=== PATIENT | male | born 1945 | race Caucasian/White ===

== ENCOUNTER 2023-09-14 03:40 | Outpatient (CLI) | payer MEDICARE, BC, SELFPAY ==
--- OUTSIDE RECORDS SUMMARY | 2023-09-17 15:54 | XMS_ITS | Clinical Summary ---
Author Organization [employer] [facility] Address [place], [place] [address] Care Team Providers Care Supervisor Color Making Name Role Phone Ema Diallo Primary Care Provider [phone] Allergies Active Allergy Reactions Criticality Noted Date [...] (Restless legs). 90 Tablet 3 01/18/2023 Active pc-UY-L4-K-lycop -lut-herb#220 500 mcg-1,000 unit-20 mcg tab Take by mouth. 03/16/2023 Activ e CPAPIndications: RAFITA (obstructive sleep apnea) CPAP machine for home use at pressure 6cmw, CPAP mask- mask of choice, fit to comfort one per 3 months 1 Each 07/26/2023 Active donepeziL (ARICEPT) 5 mg tabletIndication [...] complete/Reg imen complete/Lev el of care change) pregabalin (LYRICA) 25 mg capsuleIndicatio ns:Restless legs [...] Encounters Date Type Department Care Team Description 09/17/2023 Telephone [facility] [address] [place] [address] Sy Feng MD FYI (pregabalin (LYRICA) 75 mg capsule) 09/14/2023 Orders Only [facility] Scanner 1 scan: (1-Ord) [facility]COM[facility], 09/14/2023 09/14/2023 Orders Only [facility] Scanner 1 scan: (1-Ord) INCOMING RECORDS-[facility], [facility], 09/14/2023 09/07/2023 10:30 AM CDT Nutrition/Dietic jeovanny [facility] [address] [place] [address] Medical Nutrition Therapy 09/06/2023 12:30 PM CDT Ancillary Procedure [facility] [address] [place] [address] 09/06/2023 Travel 09/03/2023 1:35 PM CDT Office Visit [facility] [address] [place] [address] Ema Diallo PA Medicare ANNUAL (subsequent) Visit (77 Year Old/Right heel pain- worse of the last 2 weeks- would like referral for podiatry ) 09/03/2023 Travel 08/31/2023 3:00 PM CDT Office Visit [facility] [address] [place] [address] Sy Feng MD Sleep Follow-up 08/31/2023 Travel 08/26/2023 Telephone [facility] [address] [place] [address] Ema Diallo PA Medication Management (Possible Drug interaction ) 08/20/2023 Refill [facility] [address] [place] [address] Gray Medina MD Refill Request (Donepezil 5mg) 08/18/2023 1:00 PM CDT Office Visit [facility] [address] [place] [address] Gray Medina MD Follow Up (Follow up after neuropsychology testing and discuss medications ) 08/18/2023 Travel 08/09/2023 11:00 AM CDT Office Visit [address] [address] Drea Reddy PsyD, LP Follow Up (Neuropsychology feedback) 08/09/2023 9:30 AM CDT Office Visit [facility] [address] [place] [address] Ema Diallo PA Derm Problem (f/u rash on lower right leg- seems like it is gone now - would like referral for Derm. 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 /Right heel pain- discomfort with walking) 08/09/2023 Travel 08/03/2023 Telephone [facility] [address] [place] [address] Sy Feng MD Questions (QUESTIONS REGARDING MEDICATIONS) 08/02/2023 12:30 PM CDT Office Visit [address] [address] Drea Reddy PsyD, LINDA Neuropsychological Assessment 08/02/2023 Travel 07/26/2023 10:00 AM CDT Office Visit [facility] [address] [place] [address] Sy Feng MD Sleep Consult 07/26/2023 Telephone [facility] [address] [place] [address] Clinic, No Pcp Or Medication Management (pregabalin (LYRICA) 25 mg capsule) 07/26/2023 Travel 07/12/2023 1:40 PM CDT Office Visit [facility] [address] [place] [address] Nakia Young PA Derm Problem (Rash on legs/While in [place], stepped into some bushes, but also had some fire ant bites as well and it's not getting better) 07/12/2023 Travel 07/12/2023 Telephone [facility] [address] [place] [address] Nakia Young PA Derm Problem (rash) 06/28/2023 Telephone [facility] [address] [place] [address] Miah Kaur MD from Last 3 Months Immunizations Name Administration Dates Next Due COVID-19 Vaccine Spikevax (M oderna 50mcg/0.5mL) 12YO+ 2634-2091 Formula PF 06/28/2023,01/18/2023 COVID-19 vaccine ([employer]-Bio NTech 30mcg/0.3mL) SENIA ARNOLD 08/08/2021,03/18/2021,07/22/2020,2020 Influenza Virus, [...] Care Team (Late st Contact Info) Description 09/20/2023 7:50 AM CDT Procedure Only [facility] [address] [place] [address] Ema Diallo PA [address] [place] [address] 10/06/2023 11:40 AM CDT Office Visit [facility] [place] [facility] [address] [place] [address] Gray Medina MD [address] [place] [address] 10/13/2023 2:15 PM CDT Office Visit [facility] [address] [place] [address] Aleksandr Espinosa DPM [address] [place] [address] 10/26/2023 1:20 PM CDT Office Visit [facility] [address] [place] [address] Brittanie Forde PA [address] [place], [place] [address] 11/18/2023 10:00 AM CDT Office Visit [facility] [address] [place] [address] Sy Feng MD [address] [place] [address] 12/14/2023 2:00 PM CDT Nutrition/Casting Finisher [facility] [[email or web address]] [address] [place] [address] Vimal Vincent, LN [address] [place] [address] Health Maintenance Due Date Last Done Comments Zoster (shingles) series for age 50+ (1 of 2) 12/30/2011 11/04/2011 Tetanus booster 11/03/2021 11/04/2011, 11/2004, 02/10/2005, Additional history exists COVID-19 vaccine series (2022- season) 2023 06/28/2023, 01/18/2023, 08/08/2021, Additional history [...] Procedure Name Priority Date/Time Associated Diagnosis Comments SCAN CORRESP-IMAGING 09/14/2023 12:00 AM CDT SCAN CORRESP-IMAGING 09/14/2023 12:00 AM CDT MR HEAD BRAIN WO Routine 09/06/2023 12:2 [...] stores from Last 3 Months Results * SCAN CORRESP-IMAGING (09/14/2023 12:00 AM CDT) Only the most recent of2 resultswithin the time period is included. Anatomical Region Laterality Modality Other Scanner OTHER * MR BRAIN WO CONTRAST (09/06/2023 12:24 PM CDT) Anatomical Region Laterality Modality BRAIN, HEAD Magnetic Resonan ce 09/06/2023 1:05 PM CDT Addenda Addendum by Ramone Pope MD on 09/15/2023 9:03 AM CDT INDICATION: Mild cognitive impairment. Technique Multiplanar multisequence MR imaging of the brain without intravenous contrast. COMPARISON: None. FINDINGS: Zhwl-qb-qprrpxvh diffuse cerebral volume loss. No mass effect [...] well aerated. Mastoid air cells are clear. IMPRESSION: 1. No acute intracranial abnormality. 2. Notf-pn-woxbffvl diffuse cerebral volume loss and minimal chronic microvascular ischemic changes. 3. 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 Contrast-enhanced imaging is recommended for further characterization. Dictated by Ramone Pope MD @ 09/06/2023 1:05:12 PM ----- ADDENDUM ----- The 9 mm lesion within the right internal auditory canal is not significantly changed compared to 10/27/2018. Dictated by Ramone Pope MD @ Sep 15 2023 ??8:57AM (Electronically Signed) Impressions 09/06/2023 1:05 PM CDT 1. No acute intracranial abnormality. 2. Ilex-we-irpgjfdq diffuse cerebral volume loss and minimal chronic microvascular ischemic changes. 3. 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 Contrast-enhanced imaging is recommended for further characterization. Dictated by Ramone Pope MD @ 09/06/2023 1:05:12 PM (Electronically Signed) Narrative 09/06/2023 1:05 PM CDT For Patients: ??As a result of the Century Cures Act, medical imaging exams and procedure reports are released immediately into your electronic medical record. ??You may view this report before your referring provider. ??If you have questions, please contact your health care provider. INDICATION: Mild cognitive impairment. Technique Multiplanar multisequence MR imaging of the brain without intravenous contrast. COMPARISON: None. FINDINGS: Vvme-qx-fwpragek diffuse cerebral volume loss. No mass effect [...] For Patients: As a result of the Cures Act, medical imagingexams and procedure reports are released immediately into your electronicmedical record. You may view this report before your referring provider.If you have questions, please contact your health care provider. INDICATION: Mild cognitive impairment. Technique Multiplanar multisequence MR imaging of the brain without intravenouscontrast. COMPARISON: None. FINDINGS: Pslc-xx-frdscgpv diffuse cerebral volume loss. No mass effect [...] IMPRESSION: 1. No acute intracranial abnormality. 2. Ijgm-jc-pwtwxsdb diffuse cerebral volume loss and minimal chronicmicrovascular [...] - 199 mg/dL 09/03/2023 11:42 PM CDT [facility] Comment: Cholesterol, Total Reference Ranges Desirable <200 mg/dL Borderline 200-239 mg/dL High >=240 mg/dL TRIGLYCERIDES 324(H) <150 mg/dL 09/03/2023 11:42 PM CDT [employer] HDL CHOLESTEROL 49 >40 mg/dL 05/31/202 4 11:42 PM CDT [facility] NON-HDL CHOLESTEROL 132 <145 mg/dl 09/03/2023 11:42 PM CDT [facility] CHOL/HDL RATIO 3.69 <4.50 09/03/2023 11:42 PM CDT [facility] LDL CHOLESTEROL 67 <=130 mg/dL 09/03/2023 11:42 PM CDT [facility] VLDL CHOLESTEROL 65(H) <=30 mg/dL 09/03/2023 11:42 PM CDT [facility] PROVIDER ORDERED STATUS RANDOM 09/03/2023 11:42 PM CDT [facility] Blood BLOOD SPECIMEN / Unknown Venipuncture / Unknown 09/03/2023 1:42 PM CDT 09/03/2023 1:44 PM CDT Ema CHI CHEMISTRY Performing Organization Address City/[facility] Co de Phone Number [facility] [address] [place] [address], [place] * ANTI HCV (09/03/2023 1:42 PM CDT) Pathologist [facility] HEPATITIS C ANTIBODY Non-Reacti ve Non-React shaji 09/03/2023 11:43 PM CDT [facility] Comment:Please note, per www .CDC.gov: If [...] Ema CHI SEND OUTS Performing Organization Address City/[facility]/ZIP Co de Phone Number [facility] [address] [place] [address], [place] * PSA TOTAL (DIAGNOSTIC) (09/03/2023 1:42 PM CDT) PSA TOTAL (DIAGNOSTIC) 1.26 <4.00 ng/mL 09/03/2023 11:42 PM CDT [facility] Blood BLOOD SPECIMEN / Unknown Venipuncture / Unknown 09/03/2023 1:42 PM CDT 09/03/2023 1:44 PM CDT Narrative [facility] - 09/03/2023 11:42 PM CDT The test [...] cannot be used interchangeably. Ema CHI CHEMISTRY [facility] [address] [place] [address], * URINE ALBUMIN TO CREATININE RATIO, RANDOM (08/09/2023 10:40 AM CDT) ALB RAND URINE <12.0 mg/L 08/09/2023 5:49 PM CDT [facility] CREATININE,URINE 0.73 g/L 08/09/19 5:49 PM CDT [facility] ALBUMIN TO CREATININE RATIO,RAND UR 08/09/2023 5:49 PM CDT [facility] Comment:Urine Albumin below measurement range, unable to calculate. Urine URINE SPECIMEN / Unknown Non-Blood / Unknown 08/09/2023 10:40 AM CDT 08/09/2023 10:40 AM CDT Narrative [facility] - 08/09/2023 5:49 PM CDT If Albumin to Creatinine Ratio is elevated, consider the following: ? Elevations seen with incipient nephropathy associated ?? with diabetes mellitus or hypertension. Stress, exercise,hematuria, ?? and urinary tract infection may also produce elevated results. If clinically indicated, confirm with ?24 Hour Albumin to Creatinine Ratio. ?? Ema CHI URINE Performing Organization Address City/[facility]/ZIP Co de Phone Number [facility] [address] [place] [address], [place] * HEMOGLOBIN A1C MONITORING (POCT) (08/09/2023 10:27 AM CDT) HEMOGLOBIN A1C MONITORING (POCT) 5.6 <=6.4 % 08/09/2023 10:39 AM CDT [facility] Blood BLOOD SPECIMEN / Unknown Venipuncture / Unknown 08/09/2023 10:27 AM CDT 08/09/2023 10:30 AM CDT Narrative [facility] - 08/09/2023 10:39 AM CDT [...] Untreated Anemias, Splenectomy ? Ema CHI CHEMISTRY Performing Organization Address City/[facility] Co de Phone Number [facility] [address] [place] [address], [place] [phone] * (ABNORMAL) BASIC METABOLIC PANEL [18609.0] (08/09/2023 10:27 AM CDT) Pathologist [facility] SODIUM 139 136 - 145 mmol/L 08/09/2023 6:22 PM CDT [facility] POTASSIUM 4.8 3.5 - 5.1 mmol/L 08/09/2023 6:22 PM CDT [facility] CHLORIDE 104 98 - 107 mmol/L 08/09/2023 6:22 PM CDT [facility] CO2,TOTAL 26 22 - 29 mmol/L 08/09/2023 6:22 PM CDT [facility] ANION GAP 9 5 - 18 08/09/2023 6:22 PM T [facility] GLUCOSE 87 70 - 99 mg/dL 08/09/2023 6:22 PM CDT [facility] CALCIUM 9.0 8.8 - 10.2 mg/dL 08/09/2023 6:22 PM T [facility] BUN 16 8 - 23 mg/dL 08/09/2023 6:22 PM T [facility] CREATININE 0.93 0.70 - 1.20 mg/dL 08/09/2023 6:22 PM T [facility] BUN/CREAT RATIO 17 10 - 20 6:22 PM CDT [facility] eGFR 84(L) >90 mL/min/1.7 3m2 08/09/2023 6:22 PM T [facility] Comment:As of 2021, eG FR is calculated by the CKD-EPI creatinine equation without race adjustment. ??eGFR can be influenced by muscle mass, exercise, and diet. ??The reported eGFR is an estimation only and is only applicable if the renal function is stable. Blood BLOOD SPECIMEN / Unknown Venipuncture / Unknown 08/09/2023 10:27 AM CDT 08/09/2023 10:30 AM CDT Ema CHI CHEMISTRY [facility] [address] [place] [address], * TSH WITH REFLEX (07/26/2023 11:00 AM CDT) TSH 1.48 0.27 - 4.20 uIU/mL 07/26/2023 7:36 PM CDT [facility] Blood BLOOD SPECIMEN / Unknown Venipuncture / Unknown 07/26/2023 11:00 AM CDT 07/26/2023 11:01 AM CDT Narrative [facility] - 07/26/2023 7:36 PM CDT In Adults, TSH values between 5.00 and 10.00 uIU/ml do not necessarily indicate the presence of Hypothyroidism. Correlation with clinical findings such as presence of goiter and/or Thyroperoxidase (TPO) Antibody may be helpful. For more information please refer to NASIM 2004; 291: 228-238. Sy Feng MD CHEMISTRY Performing Organization Address [facility] Co de Phone Number [facility] [address] [place] [address], * IRON PLUS IRON BINDING CAP (07/26/2023 11:00 AM CDT) IRON 80 61 - 157 ug/dL 07/26/2023 7:36 PM CDT [facility] UIBC (UNSATURATED) 232 112 - 347 ug/dL 07/26/2023 7:36 PM CDT [facility] IRON BINDING CAPACITY 312 250 - 400 ug/dL 07/26/2023 7:36 PM CDT [facility] IRON,% SATURATION 26 14 - 50 % 07/26/2023 7:36 PM CDT [facility] Blood BLOOD SPECIMEN / Unknown Venipuncture / Unknown 07/26/2023 11:00 AM CDT 07/26/2023 11:01 AM CDT Sy Feng MD CHEMISTRY Performing Organization Address [facility] Co de Phone Number [facility] [address] [place] [address], from Last 3 Months Care Teams Supervisor Color Making Relationship Specialty Start Date End Date Ema Diallo PA [address] [place] [address] PCP - General Physician Sheet Metal Apprentice 08/09/23
== END 2023-09-14 03:41 | disposition home or self-care (01) ==
LOC: AMB 09-17 15:52
PROVIDERS: PCP Student in an Organized Health Care Education/Training Program; Visit Provider Student in an Organized Health Care Education/Training Program
DX: S19.9XXA Unspecified injury of neck, initial encounter (principal); W06.XXXA Fall from bed, initial encounter; Y92.091 Bathroom in other non-institutional residence as the place of occurrence of the external cause
CPT/HCPCS: A0425; A0429

== ENCOUNTER 2023-09-14 04:02 | Emergency (ER) | payer MEDICARE, BC, SELFPAY ==
--- NOTE | 2023-09-14 04:03 | CRLHL7_ITS ---
For Patients: As a result of the Century Cures Act, medical imaging exams and procedure reports are released immediately into your electronic medical record. You may view this report before your referring provider. If you have questions, please contact your health care provider. INDICATION: FALL FROM BED, HEAD LACERATION TECHNIQUE: CT cervical spine without contrast. COMPARISON: None. FINDINGS: Vertebrae: Alignment is normal. There are no fractures or suspicious bony lesions. Discs and facet joints: There are diffuse degenerative changes in the disc spaces and facet joints. Extraspinal findings: Paraspinous soft tissues are unremarkable. IMPRESSION: 1. No sign of acute cervical spine fracture. 2. Multilevel degenerative spondylosis. Please note that all CT scans at this facility use dose modulation, iterative reconstruction, and/or weight-based dosing when appropriate to reduce radiation dose to as low as reasonably achievable. Dictated by Jose Gutierrez MD @ 09/14/2023 5:05:14 AM (Electronically Signed)
--- NOTE | 2023-09-14 04:03 | CRLHL7_ITS ---
For Patients: As a result of the Century Cures Act, medical imaging exams and procedure reports are released immediately into your electronic medical record. You may view this report before your referring provider. If you have questions, please contact your health care provider. INDICATION: FALL FROM BED, HEAD LACERATION TECHNIQUE: Head CT without contrast. COMPARISON: None. FINDINGS: CSF spaces: Mild global parenchymal volume loss. Brain parenchyma and extra-axial spaces: There are mild nonspecific low attenuation white matter changes consistent with chronic microvascular disease. No sign of mass effect, hemorrhage, or midline shift. Skull base and calvarium: The visualized paranasal sinuses and mastoid air cells demonstrate no acute or significant findings. The visualized orbits are grossly unremarkable. No skull fractures. IMPRESSION: 1. No evidence of skull fracture or intracranial hemorrhage. 2. Mild global parenchymal volume loss and chronic microvascular ischemic changes. Please note that all CT scans at this facility use dose modulation, iterative reconstruction, and/or weight-based dosing when appropriate to reduce radiation dose to as low as reasonably achievable. Dictated by Jose Gutierrez MD @ 09/14/2023 5:01:14 AM (Electronically Signed)
[2023-09-14 04:06] VITALS: BP 130/86; PULSE 60; RESP 16; TEMP 36.3; O2SAT 98; BMI 23.6
--- NOTE | 2023-09-14 04:33 | ED_ITS ---
HPI - Fall General Date Seen: 09/14/23 Chief Complaint: Fall/Minor Trauma Stated Complaint: Fall, Head lac Time Seen by Provider: 09/14/23 04:03 Source: patient and family Mode of arrival: EMS Limitations: no limitations History of Present Illness HPI Narrative: patient is a 77-year-old male here with his brought in by EMS after a fall. Patient has a history of cognitive decline recently started on medication for it. Today he rolled all of bed and hit his head on a steel side table. His heard the fall and woke up instantly and states he did not lose consciousness. Since the fall he has been able to ambulate in she says he has been otherwise acting normal. He does state he has a mild headache. Does not any blood thinners. Denies vision changes, weakness, numbness, hearing changes. No other concerns at this time. Denies any neck pain. Related Data Home Medications ?Medication ?Instructions ?Recorded ?Confirmed donepezil 5 mg tablet 5 mg PO DAILY 09/14/23 09/14/23 fluorouracil 5 % topical cream applic topical 09/14/23 ketorolac 0.4 % eye drops drp ophthalmic (eye) 09/14/23 pramipexole 0.5 mg tablet 0.5 mg PO DAILY 09/14/23 09/14/23 pregabalin 25 mg capsule PO 09/14/23 pregabalin 75 mg capsule 75 mg PO DAILY 09/14/23 09/14/23 Review of Systems Status of ROS: Reports: 10 or more systems reviewed and unremarkable except as noted in History and below PFSH PFSH Social History Smoking Status: Never smoker Do you use any of these nicotine containing products: None Second hand tobacco smoke exposure: No How often do you have a drink containing alcohol: never How often do you have six or more drinks on one occasion: Never AUDIT-C Alcohol total score: 0 Non-prescribed substance use: denies use service: No Exam Narrative: Exam Narrative: Const: Well-nourished, Well-developed, in no distress Eyes: PERRL, no conjunctival injection, and symmetrical lids HENT: Atraumatic external nose and ears. Moist mucous membranes. Multiple lacerations seen the back the patient's head measuring 1 cm, 1.5 cm, 1.5 cm respectively. Neck: Symmetric, trachea midline, No thyromegaly. CVS: RRR, No murmurs or gallops. Peripheral pulses 2+ and equal in all extremities RESP: Unlabored respiratory effort. Clear to auscultation bilaterally. GI: Nontender/Nondistended, No rebound or guarding. MSK:Extremities w/o deformity, Normal Active ROM Skin: Warm, Dry. No rashes or lesions. Neuro: Normal Muscle tone, No focal neurological deficits. Psych: Awake, Alert, & Oriented x3. Appropriate mood and affect. Const: Vital Signs, click to edit/add: Vital Signs - 24 hr 09/14/23 04:06 Temperature 97.3 F L Pulse Rate [Pulse Oximeter] 60 Respiratory Rate 16 Blood Pressure [Ri ght Upper Arm] 130/86 Pulse Oximetry 98 Oxygen Delivery Me thod Room Air Course Vital Signs Vital signs: Initial Vital Signs Temperature 97.3 F L 09/14/23 04:06 Temperature Source Temporal Artery Scan 09/14/23 04:06 Pulse Rate 60 09/14/23 04:06 Pulse Rhythm Regular 09/14/23 04:06 Respiratory Rate 16 09/14/23 04:06 Blood Pressure 130/86 09/14/23 04:06 Blood Pressure Mean 100 09/14/23 04:06 Blood Pressure Position Supine 09/14/23 04:06 Pulse Oximetry 98 09/14/23 04:06 Oxygen Delivery Method Room Air 09/14/23 04:06 Vital Signs Temperature 97.3 F L 09/14/23 04:06 Pulse Rate 60 09/14/23 04:06 Respiratory Rate 16 09/14/23 04:06 Blood Pressure 130/86 09/14/23 04:06 Pulse Oximetry 98 09/14/23 04:06 Oxygen Delivery Method Room Air 09/14/23 04:06 Temperature 97.3 F L 09/14/23 04:06 Pulse Rate 60 09/14/23 04:06 Respiratory Rate 16 09/14/23 04:06 Blood Pressure 130/86 09/14/23 04:06 Pulse Oximetry 98 09/14/23 04:06 Oxygen Delivery Method Room Air 09/14/23 04:06 MDM - Fall MDM Narrative Medical decision making narrative: Patient is a 77-year-old male presenting to emergency department after a fall. He is neurovascularly intact at this time. He rolled out of bed and has been able to ambulate since then. No other concerns noted. Will do a CT scan of his head and cervical spine. Imaging was done showing no concerning abnormalities as reviewed by myself and the radiologist. I used jaclyn to close up the wounds on his scalp. But the longer ones were relatively superficial facial with 1 not requiring any sutures in the other requiring to. The 1 cm laceration required 3 jaclyn. He tolerated the procedure well. His last tetanus was 1 year ago per the . Will be discharged. Imaging Data CT scan head: Attestation: I have reviewed the pertinent imaging results. Radiologist's impression: 1. No evidence of skull fracture or intracranial hemorrhage. 2. Mild global parenchymal volume loss and chronic microvascular ischemic changes. Please note that all CT scans at this facility use dose modulation, iterative reconstruction, and/or weight-based dosing when appropriate to reduce radiation dose to as low as reasonably achievable. Dictated by Jose Gutierrez MD @ 09/14/2023 5:01:[address] scan cervical spine: Attestation: I have reviewed the pertinent imaging results. Radiologist's impression: 1. No sign of acute cervical spine fracture. 2. Multilevel degenerative spondylosis. Please note that all CT scans at this facility use dose modulation, iterative reconstruction, and/or weight-based dosing when appropriate to reduce radiation dose to as low as reasonably achievable. Dictated by Jose Gutierrez MD @ 09/14/2023 5:05:14 AM Discharge Plan Discharge Clinical Impression: Closed head injury, Laceration of scalp Patient Disposition: Home, Self-Care Condition: Improved Instructions: Staple Care (ED) Additional Instructions: Follow-up with your primary care provider or urgent care in the next 7 days to have the 5 jaclyn removed. For next 6 months, once sutures are removed, whenever you go outside put a dab of sunscreen over the laceration site to improve scar appearance. Topical antibiotics are not necessary at this time. Patient can shower but do not submerge the laceration until sutures are removed Prescriptions: No Action donepezil 5 mg tablet 5 mg PO DAILY fluorouracil 5 % cream topical pramipexole 0.5 mg tablet 0.5 mg PO DAILY ketorolac 0.4 % drops ophthalmic (eye) pregabalin 25 mg capsule PO pregabalin 75 mg capsule 75 mg PO DAILY Stand Alone Forms: [facility] Info Instructions Procedures Laceration Scalp: Name of person performing procedure: Jonathan Richardson Site: scalp Size (cm): 1.5 Description: linear and clean Depth: simple, single layer Local Anesthetic: lidocaine 1% Amount of anesthesia used (mL): 3 Pre-repair: wound explored, irrigated extensively and deep structures intact Skin layer closed with: other (5 jaclyn)
--- OUTSIDE RECORDS SUMMARY | 2023-09-14 04:51 | XMS_ITS | Clinical Summary ---
Author Organization [facility] Address [place], [place] [address] Care Team Providers Care Dining Services Director Name Role Phone Ema Diallo Primary Care Provider [phone] Allergies Active Allergy Reactions Criticality Noted Date Comments Ciprofloxacin Angioedema High 10/27/2008 Inhaled Anesthetics (Halogen Based) Hypotension High 10/20/2017 Medications Medication Sig Dispensed Refills Start Date End Date Status CPAP As directed 1 Device one time. 09/29/2022 Active ginkgo biloba 40 mg tab Take 40 mg by mouth once daily. Active Magnesium 200 mg tab Take 400 mg by mouth. Active pramipexole (MIRAPEX) 0.5 mg tabletIndication s:Restless legs syndrome Take 1 Tablet (0.5 mg) by mouth at bedtime if needed (Restless legs). 90 Tablet 3 01/18/2023 Active kj-JD-Z4-K-lycop -lut-herb#220 500 mcg-1,000 unit-20 mcg tab Take by mouth. 03/16/2023 Activ e CPAPIndications: RAFITA (obstructive sleep apnea) CPAP machine for home use at pressure 6cmw, CPAP mask- mask of choice, fit to comfort one per 3 months 1 Each 11 07/26/2023 Active donepeziL (ARICEPT) 5 mg tabletIndication s:Amnestic MCI (mild cognitive impairment with memory loss) Take 1 Tablet (5 mg) by mouth at bedtime for 30 days, THEN 2 Tablets (10 mg) at bedtime. 210 Tablet 08/25/2023 12/23/2023 Active pregabalin (LYRICA) 75 mg capsuleIndicatio ns:Restless legs syndrome (RLS) Take 1 Capsule (75 mg) by mouth at bedtime. 30 Capsule 4 08/31/2023 Active gabapentin (NEURONTIN) 100 mg capsule Take 100 mg by mouth two times daily. 09/29/2022 08/31/2023 Discontinued (*Med complete/Reg imen complete/Lev el of care change) triamcinolone 0.5% (ARISTOCORT) 0.5 % creamIndications :Rash Apply topically to affected area(s) three times daily. 30 g 1 07/12/2023 08/18/2023 Discontinued (*Patient states no longer taking) pregabalin (LYRICA) 25 mg capsuleIndicatio ns:Restless legs syndrome Take 1 pill by mouth in the afternoon -- if no results after 1 week can increase to 2 pills and max is 3 pills 60 Capsule 3 07/26/2023 08/31/2023 Discontinued (*Med complete/Reg imen complete/Lev el of care change) donepeziL (ARICEPT) 5 mg tabletIndication s:Amnestic MCI (mild cognitive impairment with memory loss) Take 1 Tablet (5 mg) by mouth at bedtime. 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 Prostate cancer 01/18/2023 Onychomycosis 01/18/2023 Encounters Date Type Department Care Team Description 09/07/2023 10:30 AM CDT Nutrition/Dietic jeovanny [facility] [address] [place] [address] Medical Nutrition Therapy 09/06/2023 12:30 PM CDT Ancillary Procedure [facility] [address] [place] [address] 09/06/2023 Travel 09/03/2023 1:35 PM CDT Office Visit [facility] [address] [place] [address] Ema Diallo PA Medicare ANNUAL (subsequent) Visit (77 Year Old/Right heel pain- worse of the last 2 weeks- would like referral for podiatry ) 09/03/2023 Travel 08/31/2023 3:00 PM CDT Office Visit [facility] [address] [place] [address] Sy Feng MD Sleep Follow-up 08/31/2023 Travel 08/26/2023 Telephone [facility] [address] [place] [address] Ema Diallo PA Medication Management (Possible Drug interaction ) 08/20/2023 Refill [facility] [address] [place] [address] Gray Medina MD Refill Request (Donepezil 5mg) 08/18/2023 1:00 PM CDT Office Visit [facility] [address] [place] [address] Gray Medina MD Follow Up (Follow up after neuropsychology testing and discuss medications ) 08/18/2023 Travel 08/09/2023 11:00 AM CDT Office Visit [address] [phone] Drea Reddy PsyD, LINDA Follow Up (Neuropsychology feedback) 08/09/2023 9:30 AM CDT Office Visit [facility] [address] [place] [address] Ema Diallo PA Derm Problem (f/u rash on lower right leg- seems like it is gone now - would like referral for Derm. 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 /Right heel pain- discomfort with walking) 08/09/2023 Travel 08/03/2023 Telephone [facility] [address] [place] [address] Sy Feng MD Questions (QUESTIONS REGARDING MEDICATIONS) 08/02/2023 12:30 PM CDT Office Visit [facility] [address] [place] [phone] Drea Reddy PsyD, LP Neuropsychological Assessment 08/02/2023 Travel 07/26/2023 10:00 AM CDT Office Visit [facility] [address] [place] [address] Sy Feng MD Sleep Consult 07/26/2023 Telephone [facility] [address] [place] [address] Clinic, No Pcp Or Medication Management (pregabalin (LYRICA) 25 mg capsule) 07/26/2023 Travel 07/12/2023 1:40 PM CDT Office Visit [facility] [address] [place] [address] Nakia Young PA Derm Problem (Rash on legs/While in [place], stepped into some bushes, but also had some fire ant bites as well and it's not getting better) 07/12/2023 Travel 07/12/2023 Telephone [facility] [address] [place] [address] Nakia Young PA Derm Problem (rash) 06/28/2023 Telephone [facility] [address] [place] [address] Miah Kaur MD from Last 3 Months Immunizations Name Administration Dates Next Due COVID-19 Vaccine Spikevax (M oderna 50mcg/0.5mL) 12YO+ [id number] Formula PF 06/28/2023,01/18/2023 COVID-19 vaccine (Sync.ME-Bio NTech 30mcg/0.3mL) SENIA ARNOLD 08/08/2021,03/18/2021,07/22/2020,2020 Influenza Virus, Unspecified 09/27/2018 Influenza, IIV3 (Age >=3 years) 01/21/2007,03/24,02/10/2005 Influenza, Inactivated AIIV4 (Age 65+ Years) Preserv Free 01/18/2023 Influenza, split (incl. patrice fied surface antigen) 01/21/2007 Pneumococcal Poly,23-Valent (Pneumovax) 09/25/2009 Pneumococcal conj 13-Valent (Prevnar 13) 10/17/2014 Td (Age >=7 Years) 02/10/2005,03/19/1995 Td, Preservative Free (age > = 7 Years) 02/10/2005 Tdap 11/04/2011 Zoster (Zostavax-ZVL, live) 11/04/2011 Zoster, Unspecified Formulation 10/09/2021(Defer red: Patient Refused) Social History Tobacco Use Types Packs/Day Years Used Date Smoking Tobacco: Never Smokeless Tobacco: Never Tobacco Cessation:Counseling Given: Yes Alcohol Use Standard Drinks/Week Comments Never 0 (1 standard drink = 0.6 oz pur e alcohol) PHQ-2 Answer Date Recorded PHQ-2 TOTAL SCORE 0 09/03/2023 Social Connections Answer Date Recorded Frequency of Communication with Friends and Fami ly 0 01/18/2023 Financial Resource Strain Answer Date R ecorded Difficulty of Paying Living Expenses 2 01/18/2023 Difficulty of Paying Living Expenses 1 01/18/2023 Food Insecurity Answer Date Recorded Worried About Running Out of Food in the Last Ye ar 1 01/18/2023 Transportation Needs Answer Date Record ed Lack of Transportation (Medical) 1 01/18/2023 Housing Stability Answer Date Recorded Unable to Pay for Housing in the Last Year 1 01/18/2023 Sex and Gender Information Value Date Recorded Sex Assigned at Not on file Gender Identity Not on file Sexual Orientation Not on file Obstetrics History Last Filed Vital Signs Vital Sign Reading Time Taken Comments Blood Pressure 111/69 09/03/2023 1:51 PM CDT Pulse 76 09/03/2023 1:51 PM CDT Temperature 36.6 ??C (97.9 ??F) 07/12/2023 1:18 PM CD T Respiratory Rate - - Oxygen Saturation 97% 09/03/2023 1:51 PM CDT Inhaled Oxygen Concentration - - Weight 77.8 kg (171 lb 8 oz) 09/03/2023 1:51 PM CDT Height 171.4 cm (5' 7.48) 09/03/2023 1:51 PM CD T Body Mass Index 26.48 09/03/2023 1:51 PM CDT Plan of Treatment Upcoming Encounters Date Type Department Care Team (Late st Contact Info) Description 10/06/2023 11:40 AM CDT Office Visit [facility] [address] [place] [address] Gray Medina MD [address] [place] [address] 10/13/2023 2:15 PM CDT Office Visit [facility] [address] [place] [address] Aleksandr Espinosa DPM [address] [place] [address] 10/26/2023 1:20 PM CDT Office Visit [facility] [address] [place] [address] Brittanie Forde PA [address] [place] [address] 11/18/2023 10:00 AM CDT Office Visit [facility] [address] [place] [address] Sy Feng MD [address] [place] [address] 12/14/2023 2:00 PM CDT Nutrition/Dietici an [facility] [address] [place] [address] [place] [address] Health Maintenance Due Date Last Done Comments Zoster (shingles) series for age 50+ (1 of 2) 12/30/2011 11/04/2011 Tetanus booster 11/03/2021 11/04/2011, 11/2004, 02/10/2005, Additional history exists COVID-19 vaccine series ( season) 2023 06/28/2023, 01/18/2023, 08/08/2021, Additional history exists Influenza for age 65+ 12/05/2023 01/18/2023 , 09/27/2018, 01/21/2007, Additional history exists BMI (ht and wt on same day) for age 18+ 09/02/2024 09/03/2023, 07/26/2023 Medicare Wellness for age 65+ 09/03/2024 09/03/2023 Depression screening for age 12+ 09/06/2024 09/07/2023, 09/03/2023, 08/09/2023 Tdap Completed 11/04/2011 Pneumococcal series for age 65+ Completed 5, 09/25/2009 Hepatitis C screening for ag e 18-79 Completed 09/03/2023 Procedures Procedure Name Priority Date/Time Associated Diagnosis Comments MR HEAD BRAIN WO Routine 09/06/2023 12:2 4 PM CDT Amnestic MCI (mild cognitive impairment with memory loss) PSA TOTAL (DIAGNOSTIC) Routine 09/03/2023 1:42 PM CDT Prostate cancer (HC) ANTI HCV Routine 09/03/2023 1:42 PM CDT Encounter for hepatitis C screening test for low risk patient LIPID PANEL W REFLEX MEASURED LDL Routine 09/03/2023 1:42 PM CDT Lipid screening URINE ALBUMIN TO CREATININE RATIO, RANDOM Routine 08/09/2023 10:40 AM CDT Type 2 diabetes mellitus without complication, without long-term current use of insulin (HC) BASIC METABOLIC PANEL Routine 08/09/2023 10:27 AM CDT Type 2 diabetes mellitus without complication, without long-term current use of insulin (HC) HEMOGLOBIN A1C Routine 08/09/2023 10:27 AM CDT Type 2 diabetes mellitus without complication, without long-term current use of insulin (HC) TSH WITH REFLEX Routine 07/26/2023 11:00 AM CDT Fatigue, unspecified type IRON PLUS IRON BINDING CAP Routine 07/26/2023 11:00 AM CDT Low iron stores from Last 3 Months Results * MR BRAIN WO CONTRAST (09/06/2023 12:24 PM CDT) Anatomical Region Laterality Modality BRAIN, HEAD Magnetic Resonan ce 09/06/2023 1:05 PM CDT Impressions 09/06/2023 1:05 PM CDT 1. No acute intracranial abnormality. 2. Bneb-hm-brigdtss diffuse cerebral volume loss and minimal chronic microvascular ischemic changes. 3. 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 Contrast-enhanced imaging is recommended for further characterization. Dictated by Ramone Pope MD @ 09/06/2023 1:05:12 PM (Electronically Signed) Narrative 09/06/2023 1:05 PM CDT For Patients: ??As a result of the Cures Act, medical imaging exams and procedure reports are released immediately into your electronic medical record. ??You may view this report before your referring provider. ??If you have questions, please contact your health care provider. INDICATION: Mild cognitive impairment. Technique Multiplanar multisequence MR imaging of the brain without intravenous contrast. COMPARISON: None. FINDINGS: Ifdm-xe-oiwcijlh diffuse cerebral volume loss. No mass effect or midline shift. Minimal FLAIR hyperintensities in the supratentorial white matter, typical for chronic microvascular ischemic changes. No intracranial hemorrhage or pathologic extra-axial fluid collection. No diffusion restriction to suggest acute infarction. T2 hypointense signal abnormality within the right internal auditory canal measuring 9 mm (series 10, image 37). The major arterial flow voids of the skull base are preserved. The globes are symmetric. Thinning of the ocular lenses. The paranasal sinuses are well aerated. Mastoid air cells are clear. Procedure Note Ramone Pope MD - 09/06/2023 For Patients: As a result of the 21st Century Cures Act, medical imagingexams and procedure reports are released immediately into your electronicmedical record. You may view this report before your referring provider.If you have questions, please contact your health care provider. INDICATION: Mild cognitive impairment. Technique Multiplanar multisequence MR imaging of the brain without intravenouscontrast. COMPARISON: None. FINDINGS: Kick-va-ztyfypmm diffuse cerebral volume loss. No mass effect or midlineshift. Minimal FLAIR hyperintensities in the supratentorial white matter,typical for chronic microvascular ischemic changes. No intracranial hemorrhage or pathologic extra-axial fluid collection. Nodiffusion restriction to suggest acute infarction. T2 hypointense signalabnormality within the right internal auditory canal measuring 9 mm(series 10, image 37). The major arterial flow voids of the skull base are preserved. The globesare symmetric. Thinning of the ocular lenses. The paranasal sinuses arewell aerated. Mastoid air cells are clear. IMPRESSION: 1. No acute intracranial abnormality. 2. Iwuh-ww-ottxdxfu diffuse cerebral volume loss and minimal chronicmicrovascular ischemic changes. 3. Signal abnormality within the right internal auditory canal, concerningfor vestibular schwannoma. Contrast-enhanced imaging is recommended forfurther characterization. Dictated by Ramone Pope MD @ 09/06/2023 1:05:12 PM (Electronically Signed) Gray Medina MD MR * (ABNORMAL) LIPID PANEL W REFLEX MEASURED LDL (09/03/2023 1:42 PM CDT) CHOLESTEROL,TOTAL 181 100 - 199 mg/dL 09/03/2023 11:42 PM CDT [facility] Comment: Cholesterol, Total Reference Ranges Desirable <200 mg/dL Borderline 200-239 mg/dL High >=240 mg/dL TRIGLYCERIDES 324(H) <150 mg/dL 09/03/2023 11:42 PM CDT [facility] HDL CHOLESTEROL 49 >40 mg/dL 11:42 PM CDT [facility] NON-HDL CHOLESTEROL 132 <145 mg/dl 09/03/2023 11:42 PM CDT [facility] CHOL/HDL RATIO 3.69 <4.50 09/03/2023 11:42 PM CDT [facility] LDL CHOLESTEROL 67 <=130 mg/dL 09/03/2023 11:42 PM CDT [facility] VLDL CHOLESTEROL 65(H) <=30 mg/dL 09/03/2023 11:42 PM CDT [facility] PROVIDER ORDERED STATUS RANDOM 09/03/2023 11:42 PM CDT [facility] Blood BLOOD SPECIMEN / Unknown Venipuncture / Unknown 09/03/2023 1:42 PM CDT 09/03/2023 1:44 PM CDT Ema CHI CHEMISTRY Performing Organization Address [facility] Co de Phone Number [facility] [address] [place] [address], [place] * ANTI HCV (09/03/2023 1:42 PM CDT) HEPATITIS C ANTIBODY Non-Reacti ve Non-React shaji 09/03/2023 11:43 PM CDT [facility] Comment:Please note, per www .CDC.gov: If a patient is known to be at high risk of HCV infection, or is symptomatic, and the physician's suspicion of HCV infection is high, HCV RNA testing is often employed and is of diagnostic value, even after an initial negative anti-HCV test result. Blood BLOOD SPECIMEN / Unknown Venipuncture / Unknown 09/03/2023 1:42 PM CDT 09/03/2023 1:44 PM CDT Ema CHI SEND OUTS Performing Organization Address [facility]/ZIP Co de Phone Number [facility] [address] [place] [address], [place] * PSA TOTAL (DIAGNOSTIC) (09/03/2023 1:42 PM CDT) PSA TOTAL (DIAGNOSTIC) 1.26 <4.00 ng/mL 09/03/2023 11:42 PM CDT [facility] Blood BLOOD SPECIMEN / Unknown Venipuncture / Unknown 09/03/2023 1:42 PM CDT 09/03/2023 1:44 PM CDT Narrative [facility] - 09/03/2023 11:42 PM CDT The test method changed on 09/29/2022. If this test has been used for serial monitoring, rebaselining is recommended. Rebaselining consists of 2 measurements, collected 3-6 weeks apart. The [employer] Ele[employer]ys total PSA assay is an electrochemiluminescence immunoassay ECLIA performed on the [employer] Amador e immunoassay analyzers. Values obtained with different assay methods may be different and cannot be used interchangeably. Ema CHI CHEMISTRY [facility] [address] [place] [address], * URINE ALBUMIN TO CREATININE RATIO, RANDOM (08/09/2023 10:40 AM CDT) ALB RAND URINE <12.0 mg/L 08/09/2023 5:49 PM CDT [facility] CREATININE,URINE 0.73 g/L 08/09/19 5:49 PM CDT [facility] ALBUMIN TO CREATININE RATIO,RAND UR 08/09/2023 5:49 PM CDT [facility] Comment:Urine Albumin below measurement range, unable to calculate. Urine URINE SPECIMEN / Unknown Non-Blood / Unknown 08/09/2023 10:40 AM CDT 08/09/2023 10:40 AM CDT Narrative [facility] - 08/09/2023 5:49 PM CDT If Albumin to Creatinine Ratio is elevated, consider the following: ? Elevations seen with incipient nephropathy associated ?? with diabetes mellitus or hypertension. Stress, exercise,hematuria, ?? and urinary tract infection may also produce elevated results. If clinically indicated, confirm with ?24 Hour Albumin to Creatinine Ratio. ?? Ema CHI URINE [facility] [address] [place] [address], [place] * HEMOGLOBIN A1C MONITORING (POCT) (08/09/2023 10:27 AM CDT) [facility] HEMOGLOBIN A1C MONITORING (POCT) 5.6 <=6.4 % 08/09/2023 10:39 AM CDT [facility] Blood BLOOD SPECIMEN / Unknown Venipuncture / Unknown 08/09/2023 10:27 AM CDT 08/09/2023 10:30 AM CDT Narrative [facility] - 08/09/2023 10:39 AM CDT ? (<=6.9%) ? Indicates good control ? (7.0% to 7.9%) ? Indicates fair control ? (>=8.0%) ? Indicates poor control ?? NOTE: ??These thresholds are guidelines and ?individual targets may vary. Falsely low levels may be seen with: Recent Transfusion, Recent Significant Blood Loss, Hemolytic Diseases, or Falsely elevated levels may be seen with: Untreated Anemias, Splenectomy ? Ema CHI CHEMISTRY [facility] [address] [place] [address], [place] [phone] * (ABNORMAL) BASIC METABOLIC PANEL [77463.0] (08/09/2023 10:27 AM CDT) [facility] SODIUM 139 136 - 145 mmol/L 08/09/2023 6:22 PM CDT [facility] POTASSIUM 4.8 3.5 - 5.1 mmol/L 08/09/2023 6:22 PM CDT [facility] CHLORIDE 104 98 - 107 mmol/L 08/09/2023 6:22 PM CDT [facility] CO2,TOTAL 26 22 - 29 mmol/L 08/09/2023 6:22 PM CDT [facility] ANION GAP 9 5 - 18 08/09/2023 6:22 PM CDT [facility] GLUCOSE 87 70 - 99 mg/dL 08/09/2023 6:22 PM CDT [facility] CALCIUM 9.0 8.8 - 10.2 mg/dL 08/09/2023 6:22 PM CDT [facility] BUN 16 8 - 23 mg/dL 08/09/2023 6:22 PM CDT [facility] CREATININE 0.93 0.70 - 1.20 mg/dL 08/09/2023 6:22 PM CDT [facility] BUN/CREAT RATIO 17 10 - 20 6:22 PM T [facility] eGFR 84(L) >90 mL/min/1.7 3m2 08/09/2023 6:22 PM T [facility] Comment:As of 2021, eG FR is calculated by the CKD-EPI creatinine equation without race adjustment. ??eGFR can be influenced by muscle mass, exercise, and diet. ??The reported eGFR is an estimation only and is only applicable if the renal function is stable. Blood BLOOD SPECIMEN / Unknown Venipuncture / Unknown 08/09/2023 10:27 AM CDT 08/09/2023 10:30 AM CDT Ema CHI CHEMISTRY [facility] [address] [place] [address] * TSH WITH REFLEX (07/26/2023 11:00 AM CDT) TSH 1.48 0.27 - 4.20 uIU/mL 07/26/2023 7:36 PM CDT [facility] Blood BLOOD SPECIMEN / Unknown Venipuncture / Unknown 07/26/2023 11:00 AM CDT 07/26/2023 11:01 AM CDT Narrative [facility] - 07/26/2023 7:36 PM CDT In Adults, TSH values between 5.00 and 10.00 uIU/ml do not necessarily indicate the presence of Hypothyroidism. Correlation with clinical findings such as presence of goiter and/or Thyroperoxidase (TPO) Antibody may be helpful. For more information please refer to NASIM 2004; 291: 228-238. Sy Feng MD CHEMISTRY Performing Organization Address [facility]/ZIP Co de Phone Number [facility] [address] [place] [address], * IRON PLUS IRON BINDING CAP (07/26/2023 11:00 AM CDT) IRON 80 61 - 157 ug/dL 07/26/2023 7:36 PM CDT [facility] UIBC (UNSATURATED) 232 112 - 347 ug/dL 07/26/2023 7:36 PM CDT [facility] IRON BINDING CAPACITY 312 250 - 400 ug/dL 07/26/2023 7:36 PM CDT [facility] IRON,% SATURATION 26 14 - 50 % 07/26/2023 7:36 PM CDT [facility] Blood BLOOD SPECIMEN / Unknown Venipuncture / Unknown 07/26/2023 11:00 AM CDT 07/26/2023 11:01 AM CDT Sy Feng MD CHEMISTRY Performing Organization Address [facility] Co de Phone Number [facility] [address] [address], from Last 3 Months Care Teams Dining Services Director Relationship Specialty Start Date End Date Ema Diallo PA [address] [place] [address] PCP - General Physician [employer]ing Machinist 08/09/23
[2023-09-14 05:44] VITALS: BP 125/71; PULSE 98; RESP 74
== END 2023-09-14 05:45 | disposition home or self-care (01) ==
PROVIDERS: Emergency Provider Student in an Organized Health Care Education/Training Program; PCP Student in an Organized Health Care Education/Training Program
DX: S01.01XA Laceration without foreign body of scalp, initial encounter (principal); W06.XXXA Fall from bed, initial encounter
CPT/HCPCS: 12002; 70450; 72125; 99283

== ENCOUNTER 2023-12-05 18:37 | Outpatient (CLI) | payer MEDICARE, BC, SELFPAY ==
--- OUTSIDE RECORDS SUMMARY | 2023-12-07 00:03 | XMS_ITS | Clinical Summary ---
Author Organization [facility] Address [place], [place] [address] Care Team Providers Care A Class Lineman Name Role Phone Ema Diallo Primary Care Provider [phone] Allergies Active Allergy Reactions Criticality Noted Date Comments Ciprofloxacin Angioedema High 10/27/2008 Inhaled Anesthetics (Halogen Based) Hypotension High 10/20/2017 Medications Medication Sig Dispensed Refills Start Date End Date Status pramipexole (MIRAPEX) 0.5 mg tabletIndications :Restless legs syndrome Take 1 Tablet (0.5 mg) by mouth at bedtime if needed (Restless legs). 90 Tablet 3 01/18/2023 Active CPAPIndications:O SA (obstructive sleep apnea) CPAP machine for home use at pressure 6cmw, CPAP mask- mask of choice, fit to comfort one per 3 months 1 Each 11 07/26/2023 Active pregabalin (Lyrica) 100 mg capsuleIndication s:Restless legs syndrome (RLS) Take 1 Capsule (100 mg) by mouth two times daily. Take once in mid morning and again at night 60 Capsule 2 10/12/2023 Active CPAP As directed 1 Device one time. 09/29/2022 11/18/2023 Discontinued (*Med complete/Reg imen complete/Lev el of care change) ginkgo biloba 40 mg tab Take 40 mg by mouth once daily. 11/18/2023 Discontinued (*Med complete/Reg imen complete/Lev el of care change) Magnesium 200 mg tab Take 400 mg by mouth. 11/18/2023 Discontinued (*Med complete/Reg imen complete/Lev el of care change) kz-ZW-F3-K-lycop- lut-herb#220 500 mcg-1,000 unit-20 mcg tab Take by mouth. 03/16/2023 11/18/2023 Discontinu ed (*Med complete/Reg imen complete/Lev el of care change) donepeziL (ARICEPT) 5 mg tabletIndications :Amnestic MCI (mild cognitive impairment with memory loss) Take 1 Tablet (5 mg) by mouth at bedtime for 30 days, THEN 2 Tablets (10 mg) at bedtime. 210 Tablet 08/25/2023 11/18/2023 Discontinued (*Med complete/Reg imen complete/Lev el of care change) pregabalin (LYRICA) 75 mg capsuleIndication s:Restless legs syndrome (RLS) Take 1 Capsule (75 mg) by mouth at bedtime. 30 Capsule 4 08/31/2023 11/18/2023 Discontinued (*Med complete/Reg imen complete/Lev el of care change) Active Problems Problem Noted Date Diagnosed Date Skin cancer 10/26/2023 Overview: 10/26/23:RIGHT UPPER CUTANEOUS LIP:Basal cell carcinoma, nodular and infiltrative:Needs Mohs 10/26/23:LEFT SUPERIOR MEDIAL CHEEK:Basal cell carcinoma, nodular: Needs Mohs 10/26/23:LEFT INFERIOR CHIN:Basal cell carcinoma, nodular and infiltrative: Needs Mohs BCC on back and face- [facility] RAFITA (obstructive sleep apnea) 01/18/2023 Restless legs syndrome 01/18/2023 Right acoustic neuroma 01/18/2023 Type 2 diabetes mellitus wit hout complication, without long-term current use of insulin 01/18/2023 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 Prostate cancer 01/18/2023 Onychomycosis 01/18/2023 Encounters Date Type Department Care Team Description 12/05/2023 Nurse Triage [facility] [[email or web address] [address] [place] [address] Ema Diallo PA Fall; Confusion 11/18/2023 10:00 AM CDT Office Visit [facility] [[email or web address]] [address] [place] [address] [address] Sy Feng MD Sleep Follow-up 11/18/2023 Travel 11/01/2023 Telephone [facility] [address] [place] [address] Brittanie Forde PA Abnormal Lab Results 10/26/2023 1:20 PM CDT Office Visit [facility] [address] [place] [address] Brittanie Forde PA Derm Problem (skin check) 10/26/2023 Travel 10/18/2023 7:00 AM CDT Office Visit [facility] [[email or web address]] [address] [place] [address] Ema Diallo PA Foot Problem (PF seems to be improved - got new shoes, wearing splints ); Urinary Problem (Incontinence - has improved some as well - goes to the bathroom hourly, making it to the restroom most times though ); Sinus Problem (Eye and nose discharge - still happening some - blows his nose a lot ) 10/18/2023 Travel 10/13/2023 2:15 PM CDT Office Visit [facility] [[email or web address]] [address] [place] [address] Aleksandr Espinosa DPM Consult (Right foot pain) 10/13/2023 Travel 10/13/2023 Telephone [facility] [[email or web address]] [address] [place] [address] Sy Feng MD Error-please disregard (TELEPHONE ENCOUNTER ALREADY OPEN) 10/12/2023 Telephone [facility] [[email or web address]] [address] [place] [address] Sy Feng MD Refill Request (pregabalin (LYRICA)) 10/12/2023 Telephone [facility] [[email or web address]] [address] [place] [address] Ema Diallo PA 10/06/2023 11:40 AM CDT Office Visit [facility] [place] [facility] [address] [place] [address] Gray Medina MD Follow Up (Follow up MRI 09/06/23, neuropsych testing 08/02/23. Patient also had head CT and cervical CT 09/14/23 after fall from bed ) 10/06/2023 Travel 10/05/2023 Telephone [facility] [[email or web address]] [address] [facility] [place] [address] Sy Feng MD Medication Management (pregabalin (LYRICA) 75 mg capsule) 09/21/2023 Telephone [facility] [place] [facility] [address] [place] [address] Gray Medina MD Results 09/20/2023 7:50 AM CDT Procedure Only [facility] [[email or web address]] [address] [place] [address] Ema Diallo PA Suture Removal (jaclyn from head ) 09/20/2023 Travel 09/17/2023 Telephone [facility] [[email or web address]] [address] [place] [address] Sy Feng MD FYI (pregabalin (LYRICA) 75 mg capsule) 09/14/2023 Orders Only [facility] Scanner 1 scan: (1-Ord) INCOMING RECORDS-CT, [facility], 09/14/2023 09/14/2023 Orders Only [facility] Scanner 1 scan: (1-Ord) INCOMING RECORDS-IN, [facility], 09/14/2023 09/07/2023 10:30 AM CDT Nutrition/Dieticia n [facility] [[email or web address]] [address] [place] [address] Medical Nutrition Therapy 09/06/2023 12:30 PM CDT Ancillary Procedure [facility] [[email or web address]] [address] [place] [address] 09/06/2023 Travel from Last 3 Months Immunizations Name Administration Dates Next Due COVID-19 Vaccine Spikevax (M oderna 50mcg/0.5mL) 12YO+ 9841-4790 Formula PF 06/28/2023,01/18/2023 COVID-19 vaccine (SERPsBio NTech 30mcg/0.3mL) SENIA ARNOLD 08/08/2021,03/18/2021,07/22/2020,2020 Influenza Virus, [...] Sign Reading Time Taken Comments Blood Pressure 105/69 11/18/2023 9:48 AM CDT Pulse 77 11/18/2023 9:48 AM CDT Temperature 36.6 ??C (97.9 ??F) 07/12/2023 1:18 PM CD T Respiratory Rate - - Oxygen Saturation 97% 11/18/2023 9:48 AM CDT Inhaled Oxygen Concentration - - Weight 79.5 kg (175 lb 3.2 oz) 11/18/2023 9:48 A M CDT Height 171.4 cm (5' 7.48) 11/18/2023 9:48 AM CD T Body Mass Index 27.05 11/18/2023 9:48 AM CDT Plan of Treatment Upcoming Encounters Date Type Department Care Team (Late st Contact Info) Description 12/14/2023 2:00 PM CDT Nutrition/Global Cto [facility] [address] [place] [address] [place] [address] 12/15/2023 10:45 AM CDT Office Visit [facility] [[email or web address]] [address] [place] [address] Ema Diallo PA [address] [place] [address] 01/17/2024 8:45 AM CDT Procedure Only [facility] [address] [address] Filemon Keith MD [address] [place] [address] 01/25/2024 1:00 PM CDT Office Visit [facility] [address] [place] [address] Brittanie Forde PA [address] [place], [place] [address] 01/31/2024 9:00 AM CDT Procedure Only [facility] [address] [address] Filemon Keith MD [address] [place] [address] 03/07/2024 9:30 AM MARKETING LIAISON Office Visit [facility] [[email or web address]] [address] [place] [address] Sy Feng MD [address] [place] [address] 03/07/2024 10:40 AM MARKETING LIAISON Office Visit [facility] [place] [facility] [address] [place] [address] Gray Medina MD [address] [place] [address] Health Maintenance Due Date Last Done Comments Zoster (shingles) series for age 50+ (2 of 3) 12/30/2011 11/04/2011 Tetanus booster 11/03/2021 11/04/2011, 11/2004, 02/10/2005, Additional history exists Influenza for age 65+ 12/05/2023 01/18/2023 , 09/27/2018, 01/21/2007, Additional history exists Medicare Wellness for age 65+ 09/03/2024 09/03/2023 Depression screening for age 12+ 09/06/2024 09/07/2023, 09/03/2023, 08/09/2023 BMI (ht and wt on same day) for age 18+ 11/17/2024 11/18/2023, 09/03/2023, 07/26/2023 Tdap Completed 11/04/2011 Pneumococcal series for age 65+ Completed 5, 09/25/2009 COVID-19 vaccine series Completed 06/28/19 24, 01/18/2023, 08/08/2021, Additional history exists Hepatitis C screening for ag e 18-79 Completed 09/03/2023 Procedures Procedure Name Priority Date/Time Associated Diagnosis Comments PATH TISSUE EXAM Routine 10/26/2023 1:20 PM CDT Neoplasm of uncertain behavior of skin UA W/ SEDIMENT EXAM REFLEXED PER CRITERIA Routine 10/18/2023 7:22 AM CDT Urge incontinence of urine SCAN CORRESP-IMAGING 09/14/2023 12:00 AM CDT SCAN CORRESP-IMAGING 09/14/2023 12:00 AM CDT MR HEAD BRAIN WO Routine 09/06/2023 12:2 4 PM CDT Amnestic MCI (mild cognitive impairment with memory loss) ANTI HCV Routine 09/03/2023 1:42 PM CDT Encounter for hepatitis C screening test for low risk patient from Last 3 Months or Most Recently Relevant to Health Maintenance Results * PATH TISSUE EXAM (10/26/2023 1:20 PM CDT) Case Report Pathology Report ?Case: [id number] ? Authorizing Provider: ??Brittanie Forde PA ? Collected: ? 10/26/2023 1320 ? Ordering Location: ? [facility] ??Received: ?10/26/2023 1539 ? Clinic ? Pathologist: ? Lina Miller MD ? Specimens: ?? A) - Lip, right upper cutaneous lip ? B) - Left Cheek, left superior medial cheek ? C) - Chin, left inferior chin ? 10/29/2023 1:16 PM CDT [facility] Final Diagnosis A) SKIN, RIGHT UPPER CUTANEOUS LIP, BIOPSY: 1. Basal cell carcinoma, nodular and infiltrative types: ?? a. Perineural invasion: Absent ?? b. Margins: Positive B) SKIN, LEFT SUPERIOR MEDIAL CHEEK, BIOPSY: 1. Basal cell carcinoma, nodular type: ?? a. Perineural invasion: Absent ?? b. Margins: Positive C) SKIN, LEFT INFERIOR CHIN, BIOPSY: 1. Basal cell carcinoma, nodular and infiltrative types: ?? a. Perineural invasion: Absent ?? b. Margins: Positive 10/29/2023 1:16 PM CDT [facility] Clinical Information A, B and C) rule out BCC. 10/29/2023 1:16 PM CDT [facility] Gross Description A) Received in formalin, labeled with the patient's name and right upper cutaneous lip, is a 0.5 x 0.4 cm skin biopsy. The skin surface is entirely involved with a flat glez-white lesion. The specimen is inked orange, bisected and entirely submitted in one cassette. B) Received in formalin, labeled with the patient's name and left superior medial cheek, are 2 skin biopsies measuring 0.5 x 0.3 cm and 0.4 x 0.3 cm. The skin surfaces are entirely involved with flat glez-white lesions. The specimens are differentially inked blue and green and entirely submitted in 1 cassette. C) Received in formalin, labeled with the patient's name and left inferior chin, is a 0.4 x 0.4 cm skin biopsy. The skin surface is entirely involved with a flat glez lesion. The specimen is inked red, bisected and entirely submitted in one cassette. EVM 10/27/2023 ?? 10/29/2023 1:16 PM CDT [facility] Microscopic Description The final diagnosis is based on microscopic examination of appropriate sections of all specimens. A) There is a nodular and infiltrative neoplasm composed of hyperchromatic epithelial cells with little cytoplasm and little mitotic activity, associated with some cleft formation adjacent to the stroma. The presence of ??orange ink is confirmed on tissue sections. B) There is a nodular neoplasm composed of hyperchromatic epithelial cells with little cytoplasm and little mitotic activity, associated with some cleft formation adjacent to the stroma. The presence of ??blue and green ink is confirmed on tissue sections. C) There is a nodular and infiltrative neoplasm composed of hyperchromatic epithelial cells with little cytoplasm and little mitotic activity, associated with some cleft formation adjacent to the stroma. The presence of ??red ink is confirmed on tissue sections. 10/29/2023 1:16 PM CDT [facility] Additional Information [facility] at [facility], Central Laboratory - [address], [place] [address] 10/29/2023 1:16 PM CDT [facility] LABORAT[facility]-C ENTRPA LABORATORY Other SPECIMEN FROM LIP / Unknown Non-Blood / Unknown 10/26/2023 1:20 PM CDT 10/26/2023 3:39 PM CDT Comment:container B) two ski n fragments Specimen (specimen) (Left Cheek) Non-Blood / Unknown 10/26/2023 1:20 PM CDT 10/26/2023 3:39 PM CDT Comment:container B) two ski n fragments Specimen (specimen) (Chin) 10/26/2023 1:20 PM CDT 10/26/2023 3:39 PM CDT Comment:container B) two ski n fragments Brittanie [facility]-CENTRAL LABORATORY [address] [place] [id number], [place] * (ABNORMAL) UA W/ SEDIMENT EXAM REFLEXED PER CRITERIA (10/18/2023 7:22 AM CDT) COLOR Yellow Yellow Color 10/18/2023 7:38 AM CDT [facility] [email or web address]] CLARITY Clear Clear Clarity 10/18/2023 7:38 AM CDT [facility] [[email or web address]] SPECIFIC GRAVITY,URINE >=1.030(A) 1.010, 1.015, 1.020, 1.025 10/18/2023 7:38 AM CDT [facility] [[email or web address]] PH,URINE 5.5 6.0, 7.0, 8.0, 5.5, 6.5, 7.5, 8.5 10/18/2023 7:38 AM CDT [facility] [[email or web address]] UROBILINOGEN, QUALITATIVE Normal Normal EU/dl 10/18/2023 7:38 AM CDT [facility] [email or web address]] PROTEIN, URINE Trace(A) Negative mg/dL 10/18/2023 7:38 AM CDT [facility] [email or web address]] GLUCOSE, URINE Negative Negative mg/dL 10/18/2023 7:38 AM CDT [facility] [[email or web address]] KETONES,URINE Negative Negative mg/dL 10/18/2023 7:38 AM CDT [facility] [[email or web address]] BILIRUBIN,URI NE Negative Negative 10/18/2023 7:38 AM CDT [facility] [[email or web address]] OCCULT BLOOD,URINE Negative Negative 10/18/2023 7:38 AM CDT [facility] [[email or web address]] NITRITE Negative Negative 10/18/2023 7:38 AM CDT [facility] [[email or web address]] LEUKOCYTE ESTERASE Negative Negative 10/18/2023 7:38 AM CDT [facility] [email or web address]] Urine URINE SPECIMEN / Unknown Non-Blood / Unknown 10/18/2023 7:22 AM CDT 10/18/2023 7:23 AM CDT Ema [facility] URINE [facility] [[email or web address]] [address] [facility] [place] [address], * SCAN CORRESP-IMAGING (09/14/2023 12:00 AM CDT) [...] brain without intravenous contrast. COMPARISON: None. FINDINGS: Mvgz-rv-rqvrutmp diffuse cerebral volume loss. No mass effect [...] IMPRESSION: 1. No acute intracranial abnormality. 2. Axkk-yx-qcplvgnk diffuse cerebral volume loss and minimal chronic [...] CDT 1. No acute intracranial abnormality. 2. Aujf-qn-sewsqkty diffuse cerebral volume loss and minimal chronic [...] brain without intravenous contrast. COMPARISON: None. FINDINGS: Zdas-ma-vmvgwobe diffuse cerebral volume loss. No mass effect [...] the brain without intravenouscontrast. COMPARISON: None. FINDINGS: Tlhj-lv-umhoqyrh diffuse cerebral volume loss. No mass effect [...] IMPRESSION: 1. No acute intracranial abnormality. 2. Klsd-rm-boqkhebg diffuse cerebral volume loss and minimal chronicmicrovascular ischemic changes. 3. Signal abnormality within the right internal auditory canal, concerningfor vestibular schwannoma. Contrast-enhanced imaging is recommended forfurther characterization. Dictated by Ramone Pope MD @ 09/06/2023 1:05:12 PM (Electronically Signed) Gray Medina MD MR * ANTI HCV (09/03/2023 1:42 PM CDT) HEPATITIS C ANTIBODY Non-Reacti ve Non-React shaji 09/03/2023 11:43 PM CDT [facility] Comment:Please note, per www .CDC.gov: [...] 1:44 PM CDT Ema [facility] SEND OUTS [employer] LABORATORY [address] [place] [address], [place] from Last 3 Months or Most Recently Relevant to Health Maintenance Care Teams A Class Lineman Relationship Specialty Start Date End Date Ema Diallo PA [address] [place] [address] PCP - General Physician Candle Maker 08/09/23
== END 2023-12-05 18:38 | disposition home or self-care (01) ==
LOC: AMB 12-07 00:01
PROVIDERS: PCP Student in an Organized Health Care Education/Training Program; Visit Provider Emergency Medicine Emergency Medical Services
DX: M79.10 Myalgia, unspecified site (principal)
CPT/HCPCS: A0998

== ENCOUNTER 2023-12-13 10:00 | Outpatient (RCR) | payer MEDICARE, BC, SELFPAY | END 2024-04-11 23:59 | disposition home or self-care (01) | PROVIDERS: PCP Student in an Organized Health Care Education/Training Program; Visit Provider Student in an Organized Health Care Education/Training Program | DX: N39.46 Mixed incontinence (principal); M25.552 Pain in left hip; M25.551 Pain in right hip; R10.2 Pelvic and perineal pain; Z51.89 Encounter for other specified aftercare | CPT/HCPCS: 97110; 97116; 97140; 97162; 97535 ==

== ENCOUNTER 2024-01-02 13:08 | Emergency (ER) | payer MEDICARE, BC, SELFPAY ==
[2024-01-02 13:21] VITALS: BP 102/65; PULSE 70; RESP 16; TEMP 36.8; O2SAT 96; BMI 28.2
--- NOTE | 2024-01-02 13:28 | ED_ITS ---
HPI - Fall General Time Seen by Provider: 13:28 Date Seen: 01/02/24 Chief Complaint: Fall/Minor Trauma Stated Complaint: weakness, falling Time Seen by Provider: 01/02/24 13:28 Source: patient Mode of arrival: ambulatory Limitations: no limitations History of Present Illness HPI Narrative: Mr. Johnson is a very pleasant 78-year-old gentleman with a history of dementia, currently tapering off Mirapex who comes to the emergency room for evaluation of a fall yesterday and falling asleep. For Mrs. Johnson states that yesterday jeaneth was in his chair at the table and she heard a crash. She thinks that he fell asleep at the table and fell out of the chair. He had no loss of consciousness and responded immediately. He did not seem to be injured and was able to move about. Today he has a bruise over his right baptist. They did go to spiritism and saying in the choir this morning. After spiritism they went to a grocery store which also has seating outside. They were sitting outside when he fell asleep and also started soot making statements about memories from long ago. He did not fall again. He has not had fever cough cold congestion. He and his received their COVID shots 3 weeks ago. He has a remote history of a UTI with catheterize a lizarraga but denies any problems today. He has no other complaints today. He does deny a sore neck, Mrs. Johnson notes that jeaneth was misdiagnosed with restless legs predominantly affecting his left leg and has been on Mirapex for quite some time. The physicians now think it is related to his dementia and therefore he is tapering off of that medication and not sleeping very well at night. Because of a fall a few months ago he now has railings on the side of his bed. Currently jeaneth and his stay at [facility]. 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 Related Data Home Medications ?Medication ?Instructions ?Recorded ?Confirmed donepezil 5 mg tablet 5 mg PO DAILY 09/14/23 09/14/23 fluorouracil 5 % topical cream applic topical 09/14/23 ketorolac 0.4 % eye drops drp ophthalmic (eye) 09/14/23 pramipexole 0.5 mg tablet 0.5 mg PO DAILY 09/14/23 09/14/23 pregabalin 100 mg capsule 100 mg PO BID 01/02/24 01/02/24 Allergies Allergy/AdvReac Type Severity Reaction Status Date / Time No Known Drug Allergies Allergy Verified 01/02/24 13:20 Review of Systems Status of ROS: Reports: 10 or more systems reviewed and unremarkable except as noted in History and below Const: Reports: fatigue; Denies: fever or chills Eyes: Denies: change in vision or blurry vision ENMT: Denies: throat pain, neck pain, vertigo or nasal congestion Cardio: Denies: chest pain, swelling of feet/ankles, lightheadedness or shortness of breath with exertion Resp: Denies: shortness of breath or cough GI: Denies: abdominal pain, nausea or vomiting : Denies: painful urination, urinary frequency or urinary urgency Musculo: Denies: neck pain Neuro: Reports: weakness in extremities; Denies: headache, numbness in extremities or vertigo Endo: Reports: fatigue PFSH PFSH Social History Smoking Status: Never smoker Do you use any of these nicotine containing products: None Second hand tobacco smoke exposure: No How often do you have a drink containing alcohol: never How often do you have six or more drinks on one occasion: Never AUDIT-C Alcohol total score: 0 Non-prescribed substance use: denies use service: No Exam Narrative: Exam Narrative: Keenan is alert and oriented. He frequently defers to his to answer questions. However he is interactive. Follows commands. GCS of 15. Head is atraumatic with the exception of some ecchymosis noted on the superior aspect of his baptist and across the inferior aspect. No significant tenderness or step-offs at this level. Neck is supple. No midline cervical tenderness. Range of motion is full. Heart with regular rate and rhythm and lungs are clear bilaterally. No discomfort with palpation down the thoracic spine. EOM is full and pupils equal round and reactive. Face symmetrical. Tongue is midline. Upper extremity strength is within normal limits. Moving all extremities and equal strength upper extremities. Const: Vital Signs, click to edit/add: Vital Signs - 24 hr 01/02/24 13:21 Temperature 98.3 F Pulse Rate [Pulse Oximeter] 70 Respiratory Rate 16 Blood Pressure [Ri ght Upper Arm] 102/65 Pulse Oximetry 96 Documenting provider has reviewed patient's vital signs: yes Course Course ED Course: Differential diagnosis includes but is not limited to strokes, cardiac arrhythmia, worsening dementia, urinary tract infection, other infection, electrolyte abnormality. Patient has regular rate and rhythm on heart exam at this time. Reevaluation(s) Reevaluation #1: Patient continues to be without complaints. Does fall asleep in the room. At this time laboratory values reassuring. Vital Signs Vital signs: Initial Vital Signs Temperature 98.3 F 01/02/24 13:21 Temperature Source Temporal Artery Scan 01/02/24 13:21 Pulse Rate 70 01/02/24 13:21 Pulse Rhythm Regular 01/02/24 13:21 Respiratory Rate 16 01/02/24 13:21 Blood Pressure 102/65 01/02/24 13:21 Blood Pressure Mean 77 01/02/24 13:21 Blood Pressure Position Sitting 01/02/24 13:21 Pulse Oximetry 96 01/02/24 13:21 Vital Signs Temperature 98.3 F 01/02/24 13:21 Pulse Rate 70 01/02/24 13:21 Respiratory Rate 16 01/02/24 13:21 Blood Pressure 102/65 01/02/24 13:21 Pulse Oximetry 96 01/02/24 13:21 Temperature 98.3 F 01/02/24 13:21 Pulse Rate 70 01/02/24 13:21 Respiratory Rate 16 01/02/24 13:21 Blood Pressure 102/65 01/02/24 13:21 Pulse Oximetry 96 01/02/24 13:21 MDM - Fall MDM Narrative Medical decision making narrative: 1. Fatigue-Keenan's notes that he has been much more sleepy during the day. He has actually fallen asleep while sitting up and fallen out of the chair. She believes this is because he is not getting good sleep at night as they taper off of his Mirapex. She notes that this had been given to him for restless legs but recently there was discussion that this is likely related to his dementia and that this was a misdiagnosis. No evidence of COVID, stroke, pneumonia, arrhythmia, urinary tract infection at this time. Mrs. Johnson will slow the taper of Mirapex at this time. Will check in with primary MD as well. 2. Fall-patient with negative head CT. 3. Disposition-Mrs. Knox her feels comfortable taking her home. This is perhaps a consequence of dementia. She states that it she feels like things are going downhill faster. No evidence of seizures. Return to the emergency room as needed for worsening symptoms. Medical Records Attestation: I reviewed the patient's medical records. Lab Data Attestation: I reviewed the patient's lab results. Labs: Lab Results 01/02/24 01/02/24 01/02/24 Range/Units 14:08 14:10 14:16 WBC 4.19 L (4.50-11.00) K/uL RBC 4.06 L (4.30-5.90) m/uL Hgb 12.0 L (13.5-17.5) gm/dL Hct 37.0 (37.0-53.0) % MCV 91 (80-100) fL MCH 30 (26-34) pg MCHC 32 (32-36) gm/dL RDW Coeff of Giuliana 13.6 (11.5-15.5) % Plt Count 128 L (140-440) K/uL Neut % (Auto) 56.3 (42.0-72.0) % Lymph % (Auto) 23.2 (20-44) % Stephens % (Auto) 16.0 H (0.0-11.0) % Eos % (Auto) 3.8 (0.0-7.0) % Baso % (Auto) 0.7 (0.0-3.0) % Neut # (Auto) 2.40 (1.7-7.0) K/uL Lymph # (Auto) 1.00 (0.90-2.90) K/uL Stephens # (Auto) 0.70 (0.00-0.90) K/UL Eos # (Auto) 0.20 (0.00-0.50) K/uL Baso # (Auto) 0.00 (0.00-0.30) K/uL Abs Immat Gran (auto) 0.00 (0.00-0.30) K/uL Imm/Tot Granulo (auto) 0.0 % Sodium 139 (135-149) mmol/L Potassium 4.4 (3.6-5.1) mmol/L Chloride 106 (96-114) mmol/L Carbon Dioxide 29 (20-32) mmol/L Anion Gap 4 L (7-15) mEq/L BUN 17 (7-30) mg/dL Creatinine 0.9 (0.5-1.5) mg/dL Estimated Creat Clear 53.17 Estimated GFR 86 ml/min Glucose 72 (60-115) mg/dL Calcium 8.6 (8.4-10.6) mg/dL Urine Color Yellow (Yellow) Urine Appearance Clear (Clear) Urine pH 5.5 (5.0-8.5) Ur Specific [place] 1.020 (1.000-1.030) Urine Protein Negative (Negative) Urine Glucose (UA) Negative (Negative) Urine Ketones Negative (Negative) Urine Blood Negative (Negative) Urine Nitrite Negative (Negative) Urine Bilirubin Negative (Negative) Urine Urobilinogen 0.2 (0.2-1.0) Ur Leukocyte Esterase Negative (Negative) Urine RBC 0-2 (0-2) Urine WBC 0-2 (0-5) Ur Squamous Epith Cells None (None-Few) Urine Bacteria None (None) SARS-CoV-2 (PCR) Negative SARS-CoV-2 (Negative) Influenza Type A (PCR) Negative PCR FLU A (Negative) Influenza Type B (PCR) Negative PCR FLU B (Negative) RSV (PCR) Negative PCR RSV (Negative) Imaging Data CT scan - head: Attestation: I have reviewed the pertinent imaging results. My impression: No acute bleed or skull fracture Radiologist's impression: Diffuse decreased attenuation of the periventricular white matter which likely represents small vessel ischemic disease. No other abnormal foci of altered attenuation in the brain parenchyma. No midline shift or mass effect. No hydrocephalus. No abnormal extra-axial fluid collections. Atrophic changes of the brain parenchyma. No abnormalities identified in the visualized portions of the paranasal sinuses, skull, and scalp. Impression: No evidence of acute intracranial abnormalities. ECG Data Attestation: I personally reviewed and interpreted this ECG as follows: ECG interpretation date: 01/02/24 Interpretation: EKG by my read shows sinus rhythm at a rate of 67. Occasional pick PAC. No acute ST or T-wave changes. QT and [place] intervals within normal limits. Discharge Plan Discharge Clinical Impression: Fatigue, Fall Patient Disposition: Home, Self-Care Condition: Unchanged Additional Instructions: Recommend slowing the taper of the Mirapex as you suggested. Return to the emergency room for onset of new or worsening symptoms. Today there is no evidence of a stroke, heart attack, electrolyte abnormality, u rinary tract infection. COVID influenza RSV negative. Prescriptions: No Action pregabalin 100 mg capsule 100 mg PO BID donepezil 5 mg tablet 5 mg PO DAILY fluorouracil 5 % cream topical pramipexole 0.5 mg tablet 0.5 mg PO DAILY ketorolac 0.4 % drops ophthalmic (eye) Follow Up/Referrals: Ema Diallo PA-C [Primary Care Provider] - Stand Alone Forms: [employer] Info Instructions
--- NOTE | 2024-01-02 13:46 | CRLHL7_ITS ---
For Patients: As a result of the Century Cures Act, medical imaging exams and procedure reports are released immediately into your electronic medical record. You may view this report before your referring provider. If you have questions, please contact your health care provider. INDICATION: FALL. RIGHT TEMP INJURY Technique: Non-contrast head CT scan. Findings: Diffuse decreased attenuation of the periventricular white matter which likely represents small vessel ischemic disease. No other abnormal foci of altered attenuation in the brain parenchyma. No midline shift or mass effect. No hydrocephalus. No abnormal extra-axial fluid collections. Atrophic changes of the brain parenchyma. No abnormalities identified in the visualized portions of the paranasal sinuses, skull, and scalp. Impression: No evidence of acute intracranial abnormalities. Please note that all CT scans at this facility use dose modulation, iterative reconstruction, and/or weight-based dosing when appropriate to reduce radiation dose to as low as reasonably achievable. Dictated by: Melchor Wilson MD @ 01/02/2024 14:22:32 (Electronically Signed)
--- OUTSIDE RECORDS SUMMARY | 2024-01-02 14:00 | XMS_ITS | Clinical Summary ---
Author Organization [employer] Address [place], [place] [address] Care Team Providers Care Patient Registration Rep Name Role Phone Ema Diallo Primary Care Provider [phone] Allergies Active Allergy Reactions Criticality Noted Date [...] and again at night 60 Capsule 2 12/17/2023 Active pregabalin (Lyrica) 100 mg capsuleIndication s:Restless legs syndrome (RLS) Take 1 Capsule (100 mg) by mouth two times daily. Take once in mid morning and again at night 60 Capsule 2 10/12/2023 12/17/2023 Discontinued (Reorder (E-cancel not sent)) Active Problems Problem Noted Date Diagnosed Date Skin cancer 10/26/2023 Overview (11/01/2023): 10/26/23:RIGHT UPPER CUTANEOUS LIP:Basal cell carcinoma, nodular and infiltrative:Needs Mohs 10/26/23:LEFT SUPERIOR MEDIAL CHEEK:Basal cell carcinoma, nodular: Needs Mohs 10/26/23:LEFT INFERIOR CHIN:Basal cell carcinoma, nodular and infiltrative: Needs Mohs BCC on back and face- [facility] RAFITA (obstructive sleep apnea) 01/18/2023 Restless legs syndrome 01/18/2023 Right acoustic neuroma 01/18/2023 Type 2 diabetes mellitus wit hout complication, without long-term current use of insulin 01/18/2023 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 Having a hard time reaching his toes. Takes a while to get out of a seating position. Has gotten a lot worse in the past 2 weeks. ) 12/27/2023 Refill [facility] [address] [place] [address] Ema Diallo PA Refill Request (Pramipexole) 12/27/2023 Travel 12/27/2023 Refill [facility] [address] [place] [address] Ema Diallo PA Refill Request (pramipexole (MIRAPEX) 0.5 mg tablet/Sig: Take 1 Tablet (0.5 mg) by mouth at bedtime if needed (Restless legs)./) 12/26/2023 Nurse Triage [facility] [address] [place] [address] Ema Diallo PA Leg Pain/problem 12/26/2023 Telephone [facility] [address] [place] [address] Ema Diallo PA 12/17/2023 Telephone [facility] [address] [place] [address] Sy Feng MD Refill Request (pregabalin (Lyrica) 100 mg capsule) 12/15/2023 10:45 AM CDT Office Visit [facility] [address] [place] [address] Ema Diallo PA ARMHS (Anxiety and depression ) 12/15/2023 Travel 12/14/2023 Telephone [facility] [address] [place] [address] Questions (Appointment today ) 12/13/2023 Telephone [facility] [address] [place] [address] Sy Feng MD fyi (Update) 12/05/2023 Nurse Triage [facility] [address] [place] [address] Ema Diallo PA Fall; Confusion 11/18/2023 10:00 AM CDT Office Visit [facility] [address] [place] [address] Sy Feng MD Sleep Follow-up 11/18/2023 Travel 11/01/2023 Telephone [facility] [address] [facility] [place] [address] Brittanie Forde PA Abnormal Lab Results 10/26/2023 1:20 PM CDT Office Visit [facility] [address] [facility] [place] [address] Brittanie Forde PA Derm Problem (skin check) 10/26/2023 Travel 10/18/2023 7:00 AM CDT Office Visit [facility] [address] [place] [address] Ema Diallo PA Foot Problem (PF seems [...] Travel 10/13/2023 2:15 PM CDT Office Visit [facility] [address] [place] [address] Aleksandr Espinosa, DPM Consult (Right foot pain) 10/13/2023 Travel 10/13/[address] [address] Sy Feng MD Error-please disregard (TELEPHONE ENCOUNTER ALREADY OPEN) 10/12/[address] [address] Sy Feng MD Refill Request (pregabalin (LYRICA)) 10/12/[address] [address] Ema Diallo PA 10/06/2023 11:40 AM CDT Office Visit [facility] [address] [place] [address] Gray Medina MD Follow Up (Follow up MRI 09/06/23, neuropsych testing 08/02/23. Patient also had head CT and cervical CT 09/14/23 after fall from bed ) 10/06/2023 Travel 10/05/[address] [address] Sy Feng MD Medication Management (pregabalin (LYRICA) 75 mg capsule) from Last 3 Months Immunizations Name Administration Dates Next Due COVID-19 VACCINE SPIKEVAX (M ODERNA 50MCG/0.5ML) 12YO+ PFS 06/28/2023,01/18/2023 COVID-19 vaccine ([employer] 30mcg/0.3mL) PF, MDV 08/08/2021,03/18/2021,07/22/2020,2020 Influenza Virus, Unspecified 09/27/2018 Influenza, IIV3 [...] Answer Date Recorded PHQ-2 TOTAL SCORE 0 12/15/2023 Social Connections Answer Date Recorded Frequency of [...] Sign Reading Time Taken Comments Blood Pressure 111/73 12/27/2023 1:09 PM CDT Pulse 76 12/27/2023 1:09 PM CDT Temperature 36.6 ??C (97.9 ??F) 07/12/2023 1:18 PM CD T Respiratory Rate - - Oxygen Saturation 97% 12/15/2023 10:41 AM CDT Inhaled Oxygen Concentration - - Weight 79.4 kg (175 lb) 12/27/2023 1:09 PM CDT Height 171.4 cm (5' 7.48) 11/18/2023 9:48 AM CD T Body Mass Index 27.02 11/18/2023 9:48 AM CDT Plan of Treatment Upcoming Encounters Date Type Department Care Team (Late st Contact Info) Description 01/17/2024 8:45 AM CDT Procedure Only [facility] [address] [address] Filemon Keith MD [facility] [address] [address] 01/25/2024 1:00 PM CDT Office Visit [facility] [address] [place] [address] Brittanie Forde PA [address] [place] [address] 01/31/2024 9:00 AM CDT Procedure Only [facility] [address] [address] Filemon Keith MD [address] [address] 03/07/2024 9:30 AM HOUSEKEEPING/LAUNDRY SUPERVISOR Office Visit [facility] [address] [place] [address] Sy Feng MD [address] [place] [address] 03/07/2024 10:40 AM HOUSEKEEPING/LAUNDRY SUPERVISOR Office Visit [facility] [address] [place] [address] Gray Medina MD [address] [place] [address] 03/21/2024 10:30 AM HOUSEKEEPING/LAUNDRY SUPERVISOR Nutrition/Parking Enforcement Specialist [facility] [address] [place] [address] [place] [address] Health Maintenance Due Date Last Done Comments Zoster (shingles) series for age 50+ (2 of 3) 12/30/2011 11/04/2011 RSV vaccine for adults or (1 - 1-dose 75+ series) 12/19/2018 Tetanus booster 11/03/2021 11/04/2011, 1111/2004, 02/10/2005, Additional history exists Influenza for age 65+ 12/05/2023 01/18/2023 , 09/27/2018, 01/21/2007, Additional history exists Medicare Wellness for age 65+ 09/03/2024 09/03/2023 BMI (ht and wt on same day) for age 18+ 11/17/2024 11/18/2023, 09/03/2023, 07/26/2023 Depression screening for age 12+ 12/16/2024 12/17/2023, 12/15/2023, 09/07/2023, Additional history exists Tdap Completed 11/04/2011 Pneumococcal series for age 65+ Completed 5, 09/25/2009 COVID-19 vaccine series Completed 12/04/19 24, 06/28/2023, 01/18/2023, Additional history exists Procedures Procedure Name Priority Date/Time Associated Diagnosis Comments XR SPINE LUMBAR 3 VIEWS Routine 12/27/2023 1:55 PM CDT Muscle pain Leg pain, bilateral CBC WITH AUTO DIFFERENTIAL Routine 12/27/2023 12:00 AM CDT LYME SCREEN W/REFLEX Routine 12/27/2023 12:00 AM CDT Muscle pain Leg pain, bilateral C-REACTIVE PROTEIN Routine 12/27/2023 12 :00 AM CDT Muscle pain Leg pain, bilateral SEDIMENTATION RATE Routine 12/27/2023 12 :00 AM CDT Muscle pain Leg pain, bilateral PATH TISSUE EXAM Routine 10/26/2023 1:20 PM CDT Neoplasm of uncertain behavior of skin UA W/ SEDIMENT EXAM REFLEXED PER CRITERIA Routine 10/18/2023 7:22 AM CDT Urge incontinence of urine from Last 3 Months Results * XR SPINE LUMBAR 3 VIEWS (12/27/2023 1:55 PM CDT) Anatomical Region Laterality Modality LUMBAR SPINE Computed Radiogr aphy 12/29/2023 9:16 AM CDT Narrative 12/29/2023 9:16 AM CDT For Patients: ??As a result of the Cures Act, medical imaging exams and procedure reports are released immediately into your electronic medical record. ??You may view this report before your referring provider. ??If you have questions, please contact your health care provider. INDICATION: Bilateral leg pain. TECHNIQUE: Three views of the lumbar spine. FINDINGS: Five lumbar vertebrae. Disc space narrowing at L1-2 and L2-3. Mild to moderate diffuse endplate hypertrophy. Grade 1 retrolisthesis at L2-3. Dictated by Michel Tovar MD @ 12/29/2023 9:16:44 AM (Electronically Signed) Procedure Note Michel Tovar MD - 12/29/2023 For Patients: As a result of the Cures Act, medical imagingexams and procedure reports are released immediately into your electronicmedical record. You may view this report before your referring provider.If you have questions, please contact your health care provider. INDICATION: Bilateral leg pain. TECHNIQUE: Three views of the lumbar spine. FINDINGS: Five lumbar vertebrae. Disc space narrowing at L1-2 and L2-3. Mild tomoderate diffuse endplate hypertrophy. Grade 1 retrolisthesis at L2-3. Dictated by Michel Tovar MD @ 12/29/2023 9:16:44 AM (Electronically Signed) [facility] * (ABNORMAL) SEDIMENTATION RATE (12/27/2023 12:00 AM CDT) SED RATE BY MODIFIED WESTERGREN 28(H) < OR = 20 mm/h [facility] Blood BLOOD SPECIMEN / Unknown 12/27/2023 12/27/2023 1:55 PM CDT [facility]AT[facility] [address] [place] [address], [facility] [address] [place] [address] * (ABNORMAL) CBC WITH AUTO DIFFERENTIAL (12/27/2023 12:00 AM CDT) WHITE BLOOD CELL COUNT 4.8 3.8 - 10.8 Thousand/u L [facility] RED BLOOD CELL COUNT 4.23 4.20 - 5.80 Million/uL [facility] HEMOGLOBIN 12.5(L) 13.2 - 17.1 g/dL [facility] HEMATOCRIT 38.0(L) 38.5 - 50.0 % [facility] MCV 89.8 80.0 - 100.0 fL [facility] MCH 29.6 27.0 - 33.0 pg [facility] MCHC 32.9 32.0 - 36.0 g/dL [facility] RDW 12.7 11.0 - 15.0 % [facility] PLATELET COUNT 151 140 - 400 Thousand/u L [facility] MPV 12.0 7.5 - 12.5 fL [facility] ABSOLUTE NEUTROPHILS 2,957 1,500 - 7,800 cells/uL [facility] ABSOLUTE LYMPHOCYTES 989 850 - 3,900 cells/uL [facility] ABSOLUTE MONOCYTES 701 200 - 950 cells/uL [facility] ABSOLUTE EOSINOPHILS 91 15 - 500 cells/uL [facility] ABSOLUTE BASOPHILS 62 0 - 200 cells/uL [facility] NEUTROPHILS 61.6 % [facility] LYMPHOCYTES 20.6 % [facility] MONOCYTES 14.6 % [facility] EOSINOPHILS 1.9 % [facility] BASOPHILS 1.3 % [facility] 12/27/2023 12/27/2023 1:5 5 PM CDT [facility] [address] [place] [address], [facility] [address] [place] [address] * LYME SCREEN W/REFLEX (12/27/2023 12:00 AM CDT) Pathologist [facility] LYME AB, SCREEN < or = 0.90 index [facility], Comment: REFERENCE RANGE: ??< OR = 0.90 Index Index ? Interpretation < OR = 0.90 ? NEGATIVE 0.91 - 1.09 ? EQUIVOCAL > OR = 1.10 ? POSITIVE This assay measures Lyme Disease (Borrelia burgdorferi) IgG plus IgM antibodies; it does not distinguish results that are both IgG and IgM positive from results that are either IgG or IgM positive. As recommended by the Centers for Disease Control and Prevention (CDC), all samples with positive or equivocal results in this screening assay will be tested using separate supplemental Lyme IgG and IgM immunoassays. Positive or equivocal screening assay results should not be interpreted as truly positive until verified as such using the supplemental assays. Screening and/or supplemental tests for Lyme disease antibodies may be falsely negative in early stages of Lyme disease, including the period when erythema migrans is apparent. These assays may be falsely positive in patients with other spirochetal diseases (e.g., syphilis) or infectious mononucleosis. Blood BLOOD SPECIMEN / Unknown 12/27/2023 12/27/2023 1:55 PM CDT [facility] SEND OUTS Performing Organization Address City/State/[facility] Co de Phone Number [facility]/[employer] [facility] [address] [place] [address], [facility] [facility], [address] [place] [address] * C-REACTIVE PROTEIN (12/27/2023 12:00 AM CDT) C-REACTIVE PROTEIN 3.4 <8.0 mg/L [facility] Blood BLOOD SPECIMEN / Unknown 12/27/2023 12/27/2023 1:55 PM CDT [facility] CHEMISTRY Performing Organization Address City/[facility]/ZIP Co de Phone Number [employer] [facility] [address] [place] [address], [facility] [address] [place] [address] * PATH TISSUE EXAM (10/26/2023 1:20 PM CDT) Case Report Pathology Report ?Case: [id number] ? Authorizing Provider: ??Brittanie Forde PA ? Collected: ? 10/26/2023 1320 ? Ordering Location: ? [facility] ??Received: ?10/26/2023 1539 ? Clinic ? Pathologist: ? Lina Miller MD ? Specimens: ?? A) - Lip, right upper cutaneous lip ? B) - Left Cheek, left superior medial cheek ? C) - Chin, left inferior chin ? 10/29/2023 1:16 PM CDT [employer] [facility] LABORATORY-C ENTRAL LABORATORY Final Diagnosis A) SKIN, [...] ?? b. Margins: Positive 10/29/2023 1:16 PM T [facility] ENTRAL LABORATORY Clinical Information A, B and C) rule out BCC. 10/29/2023 1:16 PM T [facility] ENTRAL LAB[facility]ATORY Gross Description A) Received in [...] EVM 10/27/2023 ?? 10/29/2023 1:16 PM CDT [facility]-C ENTRAL LABORATORY Microscopic Description The final [...] on tissue sections. 10/29/2023 1:16 PM CDT [facility] ENTRWI LABORATORY Additional Information Interpreted at [facility], Central Laboratory - [address], [place] [address] 10/29/2023 1:16 PM CDT [facility]- ENTRWI LABORATORY Other SPECIMEN FROM LIP / Unknown [...] two ski n fragments Brittanie [facility] PATHOLOGY/CYTOLOGY [facility]CENTRAL LABORATORY [address] [place] [address], * (ABNORMAL) UA W/ SEDIMENT EXAM REFLEXED PER CRITERIA (10/18/2023 7:22 AM CDT) COLOR Yellow Yellow Color 10/18/2023 7:38 AM CDT [facility] CLARITY Clear Clear Clarity 10/18/2023 7:38 AM CDT [facility] SPECIFIC GRAVITY,URINE >=1.030(A) 1.010, 1.015, 1.020, 1.025 10/18/2023 7:38 AM CDT [facility] PH,URINE 5.5 6.0, 7.0, 8.0, 5.5, 6.5, 7.5, 8.5 10/18/2023 7:38 AM CDT [facility] UROBILINOGEN, QUALITATIVE Normal Normal EU/dl 10/18/2023 7:38 AM CDT [facility] PROTEIN, URINE Trace(A) Negative mg/dL 10/18/2023 7:38 AM CDT [facility] GLUCOSE, URINE Negative Negative mg/dL 10/18/2023 7:38 AM CDT [facility] KETONES,URINE Negative Negative mg/dL 10/18/2023 7:38 AM CDT [facility] BILIRUBIN,URI NE Negative Negative 10/18/2023 7:38 AM CDT [facility] OCCULT BLOOD,URINE Negative Negative 10/18/2023 7:38 AM CDT [facility] NITRITE Negative Negative 10/18/2023 7:38 AM CDT [facility] LEUKOCYTE ESTERASE Negative Negative 10/18/2023 7:38 AM CDT [facility] Urine URINE SPECIMEN / Unknown Non-Blood / Unknown 10/18/2023 7:22 AM CDT 10/18/2023 7:23 AM CDT [facility] URINE Performing Organization Address City/State/[facility] Co de Phone Number [facility] [address] [place] [address], from Last 3 Months Care Teams Patient Registration Rep Relationship Specialty Start Date End Date Ema Diallo PA [address] [place] [address] PCP - General Physician Operations Mgr 08/09/23
[2024-01-02 14:13] LABS: Mean Corpuscular HGB Conc 32 gm/dL (32-36); Mean Corpuscular Hemoglobin 30 pg (26-34); Mean Corpuscular Volume 91 fL (80-100); Neutrophils Percent Auto 56.3 % (42.0-72.0); Platelet Count* 128 K/uL (140-440); RDW Coefficient of Variation % 13.6 % (11.5-15.5); Red Blood Count 4.06 m/uL (4.30-5.90); White Blood Count* 4.19 K/uL (4.50-11.00)
[2024-01-02 14:14] LABS: Basophils Percent Auto 0.7 % (0.0-3.0); Eosinophils Percent Auto 3.8 % (0.0-7.0); Lymphocytes Percent Auto 23.2 % (20-44)
[2024-01-02 14:24] LABS: Appearance Urine Clear (Clear); Bilirubin Urine Negative (Negative); Blood Urine Negative (Negative); Color Urine Yellow (Yellow); Glucose Urine Negative (Negative); Ketones Urine Negative (Negative); Leukocyte Esterase Urine Negative (Negative); Nitrite Urine Negative (Negative); Protein Urine Negative (Negative); Urobilinogen Urine 0.2 (0.2-1.0); pH Urine 5.5 (5.0-8.5)
[2024-01-02 14:24] LABS: Slide Review Reflex No
[2024-01-02 14:31] LABS: RBC Urine 0-2 (0-2); WBC Urine 0-2 (0-5)
[2024-01-02 14:43] LABS: Chloride* 106 mmol/L (96-114); Potassium* 4.4 mmol/L (3.6-5.1); Sodium* 139 mmol/L (135-149)
[2024-01-02 14:46] LABS: Anion Gap 4 mEq/L (7-15); Blood Urea Nitrogen* 17 mg/dL (7-30); Carbon Dioxide* 29 mmol/L (20-32); Creatinine* 0.9 mg/dL (0.5-1.5); Est. Creatinine Clearance* 53.17; Estimated Glomerular Filt Rate 86 ml/min
[2024-01-02 14:47] LABS: Calcium* 8.6 mg/dL (8.4-10.6); Glucose* 72 mg/dL (60-115)
[2024-01-02 14:52] LABS: PCR FLU A Negative PCR FLU A (Negative); PCR FLU B Negative PCR FLU B (Negative); PCR RSV Negative PCR RSV (Negative); SARS PCR* Negative SARS-CoV-2 (Negative)
== END 2024-01-02 16:16 | disposition home or self-care (01) ==
PROVIDERS: Emergency Provider Family Medicine; PCP Student in an Organized Health Care Education/Training Program
DX: J18.9 Pneumonia, unspecified organism (principal); M79.10 Myalgia, unspecified site
CPT/HCPCS: 36415; 70450; 80048; 81001; 85025; 87631; 93005; 96365; 96375; 99284